=== PATIENT | female | born 1940 | race African-American/Black ===

== ENCOUNTER 2021-10-14 20:59 | Inpatient (IN) | payer MEDICARE, MEDICAID ==
[~2021-10-14] VITALS: Ht 165.1 cm; Wt 66.7 kg
[~2021-10-14 20:59] MED LIST: ALPR-341; AMLO-337 PO; ATEN-175; CHLO25TA2; CLONIDINE HCL; LEVO25TA7 PO; LISI20TA31 PO; METHADONE HCL 5 MG; METO25TA6; OXYC-100; TRAM50TA; [UNRECOGNIZED DRUG - OTHER]; [UNRECOGNIZED DRUG - REMARK]; amlodipine; famotidine; gabapentin; glipizide; temazepam
[2021-10-14 23:38] LABS: BASOPHILS % 0.1 % (0.0-2.0); EOSINOPHILS % 0.1 % (0.0-5.0); LYMPHOCYTES % 8.2 % (20.0-50.0); MEAN CORPUSCULAR HEMOGLOBIN 19.5 pg (28.0-32.0); MEAN CORPUSCULAR VOLUME 70.2 fL (81.0-99.0); MONOCYTES % 5.7 % (2.0-8.0); NEUTROPHILS % 85.9 % (40.0-76.0); PLATELET 318 x1000/uL (130-400); RED CELL DISTRIBUTION WIDTH 22.5 % (11.6-14.6)
[2021-10-14 23:41] LABS: CHLORIDE 105 mEq/L (98-107)
[2021-10-15] VITALS (7 sets, daily range): BP systolic 150–175; BP diastolic 72–87
[2021-10-15 00:10] LABS: HEMATOCRIT. 20.4 % (36.0-48.0); HEMOGLOBIN. 5.7 g/dL (12.0-16.0)
[2021-10-15 00:11] LABS: PLATELET ESTIMATE NORMAL
[2021-10-15] MEDS ORDERED: POTASSIUM CHLORIDE 20MEQ TABLET SR PO ONE (00:45)
[2021-10-15] MEDS ORDERED: MORPHINE SULFATE 4 MG/ML CPJ (NOT FOR IM USE) IV ONE (01:30)
[2021-10-15] MEDS ORDERED: ACETAMINOPHEN 650MG SUPP PR PRN ×2 (02:15)
[2021-10-15] MEDS ORDERED: IPRATROPIUM/ALBUTEROL 0.5-3(2.5)MG/3ML NEB HHN PRN (02:15)
[2021-10-15] MEDS ORDERED: MAGNESIUM/ALUMINUM HYDROXIDE/SIMETHICONE 30ML UDC PO PRN (02:15)
[2021-10-15] MEDS ORDERED: GUAIFENESIN 200MG/10ML SUGAR FREE UDC PO PRN (02:15)
[2021-10-15] MEDS ORDERED: DOCUSATE SODIUM 100MG CAPSULE PO PRN (02:15)
[2021-10-15] MEDS ORDERED: ONDANSETRON HCL 4MG/2ML INJ IV PRN (02:15)
[2021-10-15] MEDS ORDERED: ACETAMINOPHEN 325MG TABLET PO PRN ×2 (02:15)
[2021-10-15] MEDS ORDERED: DEXTROSE 50% WATER 50ML SYRINGE IV PRN (02:15)
[2021-10-15] MEDS ORDERED: NALOXONE HCL 0.4MG/ML VIAL IV PRN (03:30)
[2021-10-15] MEDS ORDERED: IOHEXOL-300 100 ML BOTTLE ONE (03:40)
[2021-10-15] MEDS: MORPHINE SULFATE 2 MG/ML CPJ (NOT FOR IM USE) IV PRN ×2 (05:01→12:43)
[2021-10-15] MEDS: INSULIN LISPRO 100 UNITS/ML SUBCUT SCH ×4 (07:00→21:00)
[2021-10-15] MEDS: BLOOD SUGAR DIAGNOSTIC STRIP TEST SCH ×5 (07:24→21:00)
[2021-10-15 08:09] LABS: BASOPHILS % 0.3 % (0.0-2.0); HEMATOCRIT. 22.7 % (36.0-48.0); MEAN CORPUSCULAR HEMOGLOBIN 22.2 pg (28.0-32.0); MEAN CORPUSCULAR VOLUME 71.8 fL (81.0-99.0); MEAN PLATELET VOLUME 7.9 fl (7.4-10.4); MONOCYTES % 10.5 % (2.0-8.0); NEUTROPHILS % 80.2 % (40.0-76.0); PLATELET 269 x1000/uL (130-400); RED BLOOD CELL COUNT 3.17 mill/uL (4.2-5.4)
[2021-10-15 08:18] LABS: CHLORIDE 110 mEq/L (98-107)
[2021-10-15 08:34] LABS: CREATINE KINASE 128 IU/L (26-192); HDL CHOLESTEROL 37 mg/dL (40-59); LDL CHOLESTEROL 15 mg/dL (5-100)
[2021-10-15] MEDS: AMLODIPINE 5MG TABLET PO SCH (10:45)
[2021-10-15] MEDS ORDERED: KETOROLAC 15MG/ML VIAL IV PRN (14:30)
[2021-10-15] MEDS: MORPHINE SULFATE 4 MG/ML CPJ (NOT FOR IM USE) IV PRN (17:06)
[2021-10-15] MEDS: PANTOPRAZOLE SODIUM 40 MG/VIAL IV SCH (18:23)
[2021-10-15] MEDS: CLONIDINE 0.1MG TABLET PO PRN (18:23)
[2021-10-15 20:58] LABS: TOTAL IRON BINDING CAPACITY 612 ug/dL (250-450)
[2021-10-15 21:10] LABS: FERRITIN 8 ng/mL (10-291)
[2021-10-15 21:26] LABS: VITAMIN B12 SERUM 1285 pg/mL (211-911)
[2021-10-15 21:30] LABS: FOLIC ACID (FOLATE) SERUM > 20.00 ng/mL (>5.38)
[2021-10-16 00:03] LABS: INR 1.1; PROTHROMBIN TIME 11.4 sec (9.6-11.0)
[2021-10-16 00:34] LABS: HEPATITIS B SURFACE ANTIGEN NEGATIVE
[2021-10-16] MEDS: MORPHINE SULFATE 4 MG/ML CPJ (NOT FOR IM USE) IV PRN ×3 (02:40→16:33)
[2021-10-16 04:00] VITALS: BP 140/72
[2021-10-16 06:35] LABS: INR 1.1; PROTHROMBIN TIME 11.6 sec (9.6-11.0)
[2021-10-16 07:00] LABS: CHLORIDE 112 mEq/L (98-107)
[2021-10-16] MEDS: BLOOD SUGAR DIAGNOSTIC STRIP TEST SCH ×4 (07:20→21:00)
[2021-10-16 07:45] LABS: BASOPHILS % 0.2 % (0.0-2.0); EOSINOPHILS % 0.4 % (0.0-5.0); HEMATOCRIT. 27.1 % (36.0-48.0); HEMOGLOBIN. 8.1 g/dL (12.0-16.0); LYMPHOCYTES % 13.1 % (20.0-50.0); MEAN CORPUSCULAR VOLUME 73.8 fL (81.0-99.0); MEAN PLATELET VOLUME 8.1 fl (7.4-10.4); MONOCYTES % 11.6 % (2.0-8.0); NEUTROPHILS % 74.7 % (40.0-76.0); PLATELET 277 x1000/uL (130-400); RED BLOOD CELL COUNT 3.68 mill/uL (4.2-5.4)
[2021-10-16] MEDS: INSULIN LISPRO 100 UNITS/ML SUBCUT SCH ×4 (07:50→21:00)
[2021-10-16 08:00] VITALS: BP 177/89
[2021-10-16] MEDS ORDERED: POTASSIUM CHLORIDE 20MEQ TABLET SR PO NR (09:15)
[2021-10-16] MEDS: AMLODIPINE 5MG TABLET PO SCH (10:10)
[2021-10-16] MEDS: PANTOPRAZOLE SODIUM 40 MG/VIAL IV SCH (10:11)
[2021-10-16] MEDS: HYDROCODONE/ACETAMINOPHEN 5/325MG TABLET PO PRN ×2 (10:12→20:28)
[2021-10-16] MEDS ORDERED: PROPOFOL 200MG/20ML VIAL IV ONE (12:18)
[2021-10-16] MEDS ORDERED: MIDAZOLAM HCL 2 MG/2 ML VIAL ONE (12:18)
[2021-10-16] MEDS ORDERED: LIDOCAINE HCL 1% 20ML VIAL (Pyxis) INJ ONE (12:19)
[2021-10-16] MEDS ORDERED: AMLO10TA80 PO (14:27)
[2021-10-16] MEDS ORDERED: GABA-290 PO (14:27)
[2021-10-16] MEDS ORDERED: ASPI-1497 PO (14:27)
[2021-10-16] MEDS ORDERED: CANA100T PO (14:27)
[2021-10-16] MEDS ORDERED: LEVO75TA7 PO (14:27)
[2021-10-16] MEDS ORDERED: ATOR40TA70 PO (14:27)
[2021-10-16] MEDS ORDERED: AMLODIPINE 5MG TABLET PO NR (14:30)
[2021-10-16 15:10] VITALS: BP 167/93
[2021-10-16 16:00] VITALS: BP 182/91
[2021-10-16] MEDS: CLONIDINE 0.1MG TABLET PO PRN (16:32)
[2021-10-16 19:52] VITALS: BP 144/77
[2021-10-17] VITALS: BP 136/72
[2021-10-17 03:35] VITALS: BP 140/70
[2021-10-17] MEDS: BLOOD SUGAR DIAGNOSTIC STRIP TEST SCH ×4 (06:28→21:00)
[2021-10-17] MEDS: LEVOTHYROXINE SODIUM 75MCG TABLET PO SCH (06:28)
[2021-10-17] MEDS: INSULIN LISPRO 100 UNITS/ML SUBCUT SCH ×4 (07:40→21:00)
[2021-10-17 08:00] VITALS: BP 168/96
[2021-10-17] MEDS: PANTOPRAZOLE SODIUM 40 MG/VIAL IV SCH (08:38)
[2021-10-17] MEDS: MORPHINE SULFATE 4 MG/ML CPJ (NOT FOR IM USE) IV PRN ×3 (08:38→22:43)
[2021-10-17] MEDS: AMLODIPINE 10MG TABLET PO SCH (08:38)
[2021-10-17 12:00] VITALS: BP 158/83
[2021-10-17] MEDS ORDERED: LACTULOSE 20G/30ML UDC PO NR (12:00)
[2021-10-17] MEDS: FERROUS SULFATE 325MG TABLET PO SCH ×2 (13:03→17:15)
[2021-10-17] MEDS: LOSARTAN POTASSIUM 25 MG TABLET PO SCH (13:03)
[2021-10-17] MEDS: HYDROCODONE/ACETAMINOPHEN 5/325MG TABLET PO PRN ×2 (13:03→17:15)
[2021-10-17 13:12] LABS: CHLORIDE 111 mEq/L (98-107)
[2021-10-17 13:15] LABS: BASOPHILS % 0.5 % (0.0-2.0); EOSINOPHILS % 0.5 % (0.0-5.0); HEMATOCRIT. 26.8 % (36.0-48.0); HEMOGLOBIN. 7.9 g/dL (12.0-16.0); LYMPHOCYTES % 16.9 % (20.0-50.0); MEAN CORPUSCULAR HEMOGLOBIN 22.1 pg (28.0-32.0); MEAN CORPUSCULAR VOLUME 74.8 fL (81.0-99.0); MEAN PLATELET VOLUME 8.3 fl (7.4-10.4); MONOCYTES % 10.9 % (2.0-8.0); NEUTROPHILS % 71.2 % (40.0-76.0); PLATELET 262 x1000/uL (130-400); RED BLOOD CELL COUNT 3.58 mill/uL (4.2-5.4); RED CELL DISTRIBUTION WIDTH 23.4 % (11.6-14.6)
[2021-10-17 16:00] VITALS: BP 140/81
[2021-10-17 16:26] LABS: CLARITY URINE CLEAR (CLEAR); COLOR URINE YELLOW (YELLOW); KETONES URINE NEGATIVE (NEGATIVE); LEUKOCYTE ESTERASE URINE NEGATIVE (NEGATIVE); NITRITE URINE NEGATIVE (NEGATIVE); OCCULT BLOOD URINE NEGATIVE (NEGATIVE); PROTEIN URINE 1+ (NEGATIVE); SPECIFIC GRAVITY URINE 1.017 (1.005-1.030)
[2021-10-17] MEDS ORDERED: POTASSIUM CHLORIDE 20MEQ/PACKET PO NR (16:30)
[2021-10-17 22:30] VITALS: BP 144/86
[2021-10-18] VITALS (7 sets, daily range): BP systolic 130–170; BP diastolic 77–104
[2021-10-18] MEDS: MORPHINE SULFATE 4 MG/ML CPJ (NOT FOR IM USE) IV PRN ×5 (03:08→23:07)
[2021-10-18 06:13] LABS: CHLORIDE 112 mEq/L (98-107)
[2021-10-18 06:28] LABS: BASOPHILS % 0.2 % (0.0-2.0); EOSINOPHILS % 0.5 % (0.0-5.0); HEMATOCRIT. 28.3 % (36.0-48.0); HEMOGLOBIN. 8.5 g/dL (12.0-16.0); LYMPHOCYTES % 19.3 % (20.0-50.0); MEAN CORPUSCULAR HEMOGLOBIN 22.2 pg (28.0-32.0); MEAN CORPUSCULAR VOLUME 74.1 fL (81.0-99.0); MEAN PLATELET VOLUME 8.4 fl (7.4-10.4); PLATELET 251 x1000/uL (130-400); RED BLOOD CELL COUNT 3.82 mill/uL (4.2-5.4); RED CELL DISTRIBUTION WIDTH 23.5 % (11.6-14.6)
[2021-10-18] MEDS: LEVOTHYROXINE SODIUM 75MCG TABLET PO SCH (06:52)
[2021-10-18] MEDS: BLOOD SUGAR DIAGNOSTIC STRIP TEST SCH ×4 (07:12→20:28)
[2021-10-18] MEDS: INSULIN LISPRO 100 UNITS/ML SUBCUT SCH ×4 (07:28→20:28)
[2021-10-18] MEDS: AMLODIPINE 10MG TABLET PO SCH (08:59)
[2021-10-18] MEDS: LOSARTAN POTASSIUM 25 MG TABLET PO SCH (08:59)
[2021-10-18] MEDS: HYDROCODONE/ACETAMINOPHEN 5/325MG TABLET PO PRN (08:59)
[2021-10-18] MEDS: PANTOPRAZOLE SODIUM 40 MG/VIAL IV SCH (08:59)
[2021-10-18] MEDS: FERROUS SULFATE 325MG TABLET PO SCH ×3 (08:59→17:13)
[2021-10-18] MEDS ORDERED: LOSARTAN POTASSIUM 25 MG TABLET PO NR (10:30)
[2021-10-18] MEDS ORDERED: MAGNESIUM OXIDE 400MG TABLET PO NR (10:45)
[2021-10-18] MEDS ORDERED: POTASSIUM CHLORIDE 10MEQ TABLET SR PO NR (10:45)
[2021-10-18] MEDS ORDERED: POTASSIUM CHLORIDE 20MEQ/PACKET PO NR (11:00)
[2021-10-18] MEDS ORDERED: LACTULOSE 20G/30ML UDC PO NR (16:59)
[2021-10-18] MEDS ORDERED: LOSARTAN POTASSIUM 25 MG TABLET PO SCH (17:00)
[2021-10-18] MEDS ORDERED: LOSARTAN POTASSIUM 50 MG TABLET PO SCH (17:00)
[2021-10-18] MEDS: CLONIDINE 0.1MG TABLET PO PRN (21:13)
[2021-10-19 16:52] LABS: PLATELET ESTIMATE NORMAL
== END 2021-10-18 23:15 | DRG 551 ==
LOC: ER 20:59 → MICUSO 10-15 00:35 → 6WST 10-15 16:48
PROVIDERS: ADMIT Family Medicine Adult Medicine; ATTEND Family Medicine Adult Medicine
PROC: 30233N1 Transfusion of Nonautologous Red Blood Cells into Peripheral Vein, Percutaneous Approach (ICD-10-PCS; 2021-10-15)
PROC: 0DB78ZX Excision of Stomach, Pylorus, Via Natural or Artificial Opening Endoscopic, Diagnostic (ICD-10-PCS; principal; 2021-10-16)
DX: S32.028A Other fracture of second lumbar vertebra, initial encounter for closed fracture (principal); G93.41 Metabolic encephalopathy; K29.01 Acute gastritis with bleeding; S22.42XA Multiple fractures of ribs, left side, initial encounter for closed fracture; G82.20 Paraplegia, unspecified; N17.9 Acute kidney failure, unspecified; K92.1 Melena; S32.038A Other fracture of third lumbar vertebra, initial encounter for closed fracture; R33.9 Retention of urine, unspecified; Z20.822 Contact with and (suspected) exposure to COVID-19; E87.6 Hypokalemia; K86.89 Other specified diseases of pancreas; I10 Essential (primary) hypertension; E03.9 Hypothyroidism, unspecified; R74.01 Elevation of levels of liver transaminase levels; E11.40 Type 2 diabetes mellitus with diabetic neuropathy, unspecified; D50.9 Iron deficiency anemia, unspecified; K42.9 Umbilical hernia without obstruction or gangrene; E80.6 Other disorders of bilirubin metabolism; G89.4 Chronic pain syndrome; B19.20 Unspecified viral hepatitis C without hepatic coma; Z74.01 Bed confinement status; Z79.84 Long term (current) use of oral hypoglycemic drugs; Z90.49 Acquired absence of other specified parts of digestive tract; Z79.899 Other long term (current) drug therapy; Z90.710 Acquired absence of both cervix and uterus; Z86.73 Personal history of transient ischemic attack (TIA), and cerebral infarction without residual deficits; W01.0XXA Fall on same level from slipping, tripping and stumbling without subsequent striking against object, initial encounter; Y92.002 Bathroom of unspecified non-institutional (private) residence as the place of occurrence of the external cause; Y93.89 Activity, other specified; Y99.8 Other external cause status; S32.018A Other fracture of first lumbar vertebra, initial encounter for closed fracture; G90.9 Disorder of the autonomic nervous system, unspecified; R53.1 Weakness; N83.8 Other noninflammatory disorders of ovary, fallopian tube and broad ligament
CPT/HCPCS: 36415; 70551; 71045; 71101; 72141; 72146; 72148; 73080; 74018; 74177; 76856; 80048; 80053; 80061; 80076; 81003; 82140; 82248; 82550; 82607; 82728; 82746; 82962; 83036; 83540; 83550; 83735; 84443; 84484; 85025; 85044; 86705; 86709; 86803; 86850; 86900; 86920; 87340; 87426; 88305; 88312; 88313; 93306; 93970; 97161; 97162; 99291; C9113; J2250; J2270; J2405; J2704; J3490; P9016; Q9967

== ENCOUNTER 2021-10-18 23:15 | Inpatient (IN) | payer MEDICARE, MEDICAID ==
[~2021-10-18] VITALS: Ht 165.1 cm; Wt 66.7 kg
[2021-10-18 23:15] VITALS: BP 144/86
[~2021-10-18 23:15] MED LIST changes: -ALPR-341; -AMLO-337 PO; +AMLO10TA80 PO; +ASPI-1497 PO; -ATEN-175; +ATOR40TA70 PO; +CANA100T PO; -CHLO25TA2; -CLONIDINE HCL; +GABA-290 PO; -LEVO25TA7 PO; +LEVO75TA7 PO; -METHADONE HCL 5 MG; -METO25TA6; -OXYC-100; -TRAM50TA; -[UNRECOGNIZED DRUG - OTHER]; -[UNRECOGNIZED DRUG - REMARK]; -amlodipine; -famotidine; -gabapentin; -glipizide; -temazepam
[2021-10-19] MEDS ORDERED: MAGNESIUM/ALUMINUM HYDROXIDE/SIMETHICONE 30ML UDC PO PRN (01:15)
[2021-10-19] MEDS ORDERED: ACETAMINOPHEN 650MG/20.3ML UDC PO PRN (01:15)
[2021-10-19] MEDS ORDERED: ONDANSETRON HCL 4MG/2ML INJ IV PRN (01:15)
[2021-10-19] MEDS ORDERED: IPRATROPIUM/ALBUTEROL 0.5-3(2.5)MG/3ML NEB HHN PRN (01:15)
[2021-10-19] MEDS ORDERED: GUAIFENESIN 200MG/10ML SUGAR FREE UDC PO PRN (01:15)
[2021-10-19] MEDS ORDERED: CLONIDINE 0.1MG TABLET PO PRN (01:15)
[2021-10-19] MEDS ORDERED: NALOXONE HCL 0.4 MG/ML 1ML VIAL IV PRN (01:15)
[2021-10-19] MEDS ORDERED: MORPHINE SULFATE 4 MG/ML CPJ (NOT FOR IM USE) IV PRN (01:15)
[2021-10-19] MEDS ORDERED: DOCUSATE SODIUM 100MG CAPSULE PO PRN (01:15)
[2021-10-19] MEDS ORDERED: NALOXONE HCL 0.4MG/ML VIAL IV PRN (01:45)
[2021-10-19] MEDS ORDERED: MORPHINE SULFATE 2 MG/ML CPJ (NOT FOR IM USE) IV PRN (01:45)
[2021-10-19] MEDS ORDERED: ACETAMINOPHEN 650MG SUPP PR PRN ×2 (01:45)
[2021-10-19] MEDS ORDERED: DEXTROSE 50% WATER 50ML SYRINGE IV PRN ×3 (02:00→02:30)
[2021-10-19 03:35] LABS: CLARITY URINE CLEAR (CLEAR); COLOR URINE YELLOW (YELLOW); KETONES URINE TRACE (NEGATIVE); LEUKOCYTE ESTERASE URINE 2+ (NEGATIVE); NITRITE URINE NEGATIVE (NEGATIVE); OCCULT BLOOD URINE 2+ (NEGATIVE); PH URINE 6.5 (4.5-8.0); PROTEIN URINE 1+ (NEGATIVE); SPECIFIC GRAVITY URINE 1.018 (1.005-1.030)
[2021-10-19 04:00] VITALS: BP 128/70
[2021-10-19] MEDS ORDERED: BLOOD SUGAR DIAGNOSTIC STRIP TEST SCH ×2 (06:30)
[2021-10-19] MEDS: BLOOD SUGAR DIAGNOSTIC STRIP TEST SCH ×4 (06:49→21:52)
[2021-10-19] MEDS: LEVOTHYROXINE SODIUM 75MCG TABLET PO SCH (06:51)
[2021-10-19] MEDS: INSULIN LISPRO 100 UNITS/ML SUBCUT SCH ×4 (06:53→21:00)
[2021-10-19 08:00] VITALS: BP 157/86
[2021-10-19] MEDS: FERROUS SULFATE 325MG TABLET PO SCH ×3 (08:55→18:08)
[2021-10-19] MEDS: HYDROCODONE/ACETAMINOPHEN 5/325MG TABLET PO PRN ×3 (08:56→21:59)
[2021-10-19] MEDS: LOSARTAN POTASSIUM 50 MG TABLET PO SCH ×2 (08:56→18:08)
[2021-10-19] MEDS: AMLODIPINE 10MG TABLET PO SCH (08:57)
[2021-10-19] MEDS ORDERED: PANTOPRAZOLE SODIUM 40 MG/VIAL IV SCH (09:00)
[2021-10-19] MEDS ORDERED: LACTULOSE 20G/30ML UDC PO PRN ×2 (14:15→14:45)
[2021-10-19] MEDS ORDERED: LEVOFLOXACIN 500MG TABLET PO NR (14:30)
[2021-10-19] MEDS ORDERED: NA PHOS,M-B/NA PHOS,DI-BA ENEMA 118ML PR PRN (14:45)
[2021-10-19] MEDS: DOCUSATE SODIUM 100MG CAPSULE PO SCH ×2 (18:08→21:57)
[2021-10-19] MEDS: ACETAMINOPHEN 650MG/20.3ML UDC PO PRN (18:09)
[2021-10-19 20:00] VITALS: BP 156/89
[2021-10-20] MEDS: BLOOD SUGAR DIAGNOSTIC STRIP TEST SCH ×4 (06:12→21:00)
[2021-10-20] MEDS: LEVOTHYROXINE SODIUM 75MCG TABLET PO SCH (06:12)
[2021-10-20] MEDS: PANTOPRAZOLE 40MG DR TABLET PO SCH (06:12)
[2021-10-20] MEDS: INSULIN LISPRO 100 UNITS/ML SUBCUT SCH ×4 (06:13→21:00)
[2021-10-20] MEDS: ACETAMINOPHEN 650MG/20.3ML UDC PO PRN ×2 (06:30→23:29)
[2021-10-20 06:44] LABS: BASOPHILS % 0.2 % (0.0-2.0); EOSINOPHILS % 0.3 % (0.0-5.0); HEMATOCRIT. 30.5 % (36.0-48.0); MEAN CORPUSCULAR HEMOGLOBIN 22.8 pg (28.0-32.0); MEAN PLATELET VOLUME 7.9 fl (7.4-10.4); MONOCYTES % 9.3 % (2.0-8.0); NEUTROPHILS % 78.2 % (40.0-76.0); PLATELET 241 x1000/uL (130-400); RED BLOOD CELL COUNT 3.96 mill/uL (4.2-5.4); RED CELL DISTRIBUTION WIDTH 24.1 % (11.6-14.6)
[2021-10-20 07:22] LABS: CHLORIDE 114 mEq/L (98-107)
[2021-10-20 08:00] VITALS: BP 149/65
[2021-10-20] MEDS: AMLODIPINE 10MG TABLET PO SCH (09:12)
[2021-10-20] MEDS: FERROUS SULFATE 325MG TABLET PO SCH ×3 (09:12→17:08)
[2021-10-20] MEDS: DOCUSATE SODIUM 100MG CAPSULE PO SCH ×2 (09:12→17:09)
[2021-10-20] MEDS: LOSARTAN POTASSIUM 50 MG TABLET PO SCH ×2 (09:12→17:11)
[2021-10-20] MEDS: HYDROCODONE/ACETAMINOPHEN 5/325MG TABLET PO PRN ×2 (09:24→13:33)
[2021-10-20] MEDS: LEVOFLOXACIN 250MG TABLET PO SCH (11:27)
[2021-10-20 18:03] LABS: PLATELET ESTIMATE NORMAL
[2021-10-20 20:25] VITALS: BP 131/58
[2021-10-21] MEDS: HYDROCODONE/ACETAMINOPHEN 5/325MG TABLET PO PRN ×4 (04:47→18:03)
[2021-10-21] MEDS: BLOOD SUGAR DIAGNOSTIC STRIP TEST SCH ×4 (06:21→21:00)
[2021-10-21] MEDS: PANTOPRAZOLE 40MG DR TABLET PO SCH (06:22)
[2021-10-21] MEDS: LEVOTHYROXINE SODIUM 75MCG TABLET PO SCH (06:22)
[2021-10-21 08:00] VITALS: BP 148/77
[2021-10-21] MEDS: INSULIN LISPRO 100 UNITS/ML SUBCUT SCH ×4 (09:00→21:00)
[2021-10-21] MEDS: AMLODIPINE 10MG TABLET PO SCH (09:16)
[2021-10-21] MEDS: LOSARTAN POTASSIUM 50 MG TABLET PO SCH ×2 (09:16→18:02)
[2021-10-21] MEDS: DOCUSATE SODIUM 100MG CAPSULE PO SCH ×2 (09:16→18:02)
[2021-10-21] MEDS: FERROUS SULFATE 325MG TABLET PO SCH ×3 (09:16→18:02)
[2021-10-21] MEDS: LEVOFLOXACIN 250MG TABLET PO SCH (11:31)
[2021-10-21] MEDS ORDERED: AMLO10TA80 PO (16:58)
[2021-10-21] MEDS ORDERED: LOSA50TA3 PO (16:58)
[2021-10-21 20:03] VITALS: BP 147/81
[2021-10-22] MEDS: HYDROCODONE/ACETAMINOPHEN 5/325MG TABLET PO PRN ×3 (04:06→18:06)
[2021-10-22] MEDS: BLOOD SUGAR DIAGNOSTIC STRIP TEST SCH ×3 (06:42→17:00)
[2021-10-22] MEDS: LEVOTHYROXINE SODIUM 75MCG TABLET PO SCH (06:42)
[2021-10-22] MEDS: INSULIN LISPRO 100 UNITS/ML SUBCUT SCH ×3 (07:24→17:00)
[2021-10-22 08:00] VITALS: BP 162/88
[2021-10-22] MEDS ORDERED: FAMOTIDINE 20MG TABLET PO SCH (09:00)
[2021-10-22] MEDS: AMLODIPINE 10MG TABLET PO SCH (09:49)
[2021-10-22] MEDS: FERROUS SULFATE 325MG TABLET PO SCH ×3 (09:49→17:00)
[2021-10-22] MEDS: DOCUSATE SODIUM 100MG CAPSULE PO SCH ×2 (09:49→17:00)
[2021-10-22] MEDS: LOSARTAN POTASSIUM 50 MG TABLET PO SCH ×2 (09:49→18:07)
[2021-10-22] MEDS: LEVOFLOXACIN 250MG TABLET PO SCH (09:50)
[2021-10-22] MEDS ORDERED: HYDR-4001 MT (12:03)
[2021-10-22] MEDS ORDERED: TRAM50TA94 MT (12:03)
[2021-10-22 18:06] VITALS: BP 149/86
[2021-10-22] MEDS: ACETAMINOPHEN 650MG/20.3ML UDC PO PRN (19:48)
== END 2021-10-22 20:08 | disposition home health service (06) | DRG 184 ==
PROVIDERS: ADMIT Psychiatry & Neurology Neurology; ATTEND Family Medicine Adult Medicine
DX: S22.42XA Multiple fractures of ribs, left side, initial encounter for closed fracture (principal); G93.40 Encephalopathy, unspecified; N39.0 Urinary tract infection, site not specified; M48.061 Spinal stenosis, lumbar region without neurogenic claudication; M71.30 Other bursal cyst, unspecified site; B19.20 Unspecified viral hepatitis C without hepatic coma; D64.9 Anemia, unspecified; E03.9 Hypothyroidism, unspecified; E11.42 Type 2 diabetes mellitus with diabetic polyneuropathy; F01.50 Vascular dementia, unspecified severity, without behavioral disturbance, psychotic disturbance, mood disturbance, and anxiety; F39 Unspecified mood [affective] disorder; G89.29 Other chronic pain; I10 Essential (primary) hypertension; M54.17 Radiculopathy, lumbosacral region; K29.70 Gastritis, unspecified, without bleeding; Z20.822 Contact with and (suspected) exposure to COVID-19; K59.00 Constipation, unspecified; W18.39XA Other fall on same level, initial encounter; Y93.89 Activity, other specified; Y92.89 Other specified places as the place of occurrence of the external cause; Y99.8 Other external cause status; Z86.73 Personal history of transient ischemic attack (TIA), and cerebral infarction without residual deficits; R26.9 Unspecified abnormalities of gait and mobility
CPT/HCPCS: 36415; 80048; 81003; 82962; 83036; 83735; 85025; 87077; 87186; 87426; 92523; 97110; 97162; 97166; 97530; 97535; C9113

== ENCOUNTER 2022-07-23 14:24 | Inpatient (IN) | payer MEDICARE, MEDICAID ==
[~2022-07-23] VITALS: Ht 165.1 cm; Wt 56.2 kg
[~2022-07-23 14:24] MED LIST changes: +HYDR-4001 MT; -LISI20TA31 PO; +LOSA50TA3 PO; +TRAM50TA94 MT
[2022-07-23 15:36] LABS: HEMATOCRIT. 29.2 % (36.0-48.0); HEMOGLOBIN. 8.8 g/dL (12.0-16.0); MEAN CORPUSCULAR HEMOGLOBIN 26.1 pg (28.0-32.0); MEAN CORPUSCULAR VOLUME 86.2 fL (81.0-99.0); MEAN PLATELET VOLUME 8.1 fl (7.4-10.4); PLATELET 233 x1000/uL (130-400); RED BLOOD CELL COUNT 3.38 mill/uL (4.2-5.4); RED CELL DISTRIBUTION WIDTH 24.8 % (11.6-14.6)
[2022-07-23 15:39] LABS: PROTHROMBIN TIME 11.2 sec (9.6-11.0)
[2022-07-23 15:47] LABS: CLARITY URINE CLEAR (CLEAR); COLOR URINE YELLOW (YELLOW); KETONES URINE NEGATIVE (NEGATIVE); LEUKOCYTE ESTERASE URINE NEGATIVE (NEGATIVE); NITRITE URINE NEGATIVE (NEGATIVE); OCCULT BLOOD URINE NEGATIVE (NEGATIVE); PH URINE 7.5 (4.5-8.0); PROTEIN URINE 1+ (NEGATIVE); SPECIFIC GRAVITY URINE 1.015 (1.005-1.030)
[2022-07-23 15:47] LABS: CHLORIDE 113 mEq/L (98-107)
[2022-07-23] MEDS ORDERED: IOHEXOL-350 100 ML BOTTLE ONE (21:22)
[2022-07-23 21:40] LABS: PLATELET ESTIMATE NORMAL
[2022-07-24 02:32] VITALS: BP 137/86
[2022-07-24] MEDS ORDERED: ACETAMINOPHEN 650MG/20.3ML UDC PO PRN (03:15)
[2022-07-24] MEDS ORDERED: CLONIDINE 0.1MG TABLET PO PRN (03:15)
[2022-07-24] MEDS ORDERED: DEXTROSE 50% WATER 50ML SYRINGE IV PRN (03:15)
[2022-07-24] MEDS ORDERED: HYDROCODONE/ACETAMINOPHEN 5/325MG TABLET PO PRN (03:15)
[2022-07-24] MEDS ORDERED: NALOXONE HCL 0.4MG/ML VIAL IV PRN (05:30)
[2022-07-24] MEDS: BLOOD SUGAR DIAGNOSTIC STRIP TEST SCH ×3 (07:03→17:11)
[2022-07-24] MEDS: INSULIN LISPRO 100 UNITS/ML SUBCUT SCH ×3 (07:50→17:11)
[2022-07-24 08:00] VITALS: BP 123/73
[2022-07-24] MEDS ORDERED: ENOXAPARIN 40MG/0.4ML SYR SUBCUT SCH (09:00)
[2022-07-24 12:00] VITALS: BP 123/73
[2022-07-24 12:55] LABS: HEMATOCRIT 27.6 % (36.0-48.0); HEMOGLOBIN 8.7 g/dL (12.0-16.0); MEAN CORPUSCULAR HEMOGLOBIN 26.2 pg (28.0-32.0); MEAN CORPUSCULAR VOLUME 83.5 fL (81.0-99.0); PLATELET 247 x1000/uL (130-400); RED CELL DISTRIBUTION WIDTH 25.1 % (11.6-14.6)
[2022-07-24 14:14] LABS: CHLORIDE 110 mEq/L (98-107)
[2022-07-24] MEDS ORDERED: PANTOPRAZOLE 40MG DR TABLET PO SCH (14:15)
[2022-07-24] MEDS ORDERED: CIPR-264 MT (14:38)
[2022-07-24] MEDS ORDERED: POTASSIUM CHLORIDE 20MEQ TABLET SR PO NR (15:00)
[2022-07-24 16:00] VITALS: BP 110/71
[2022-07-24] MEDS ORDERED: CEFTRIAXONE 1,000 MG in DEXTROSE 5% WATER 50 ML IV NR (16:00)
[2022-07-24 19:01] VITALS: BP 142/64
== END 2022-07-24 19:30 | disposition home or self-care (01) | DRG 690 ==
LOC: ER 14:43 → EDBEDREQSVC 14:51 → MICUSO 20:34 → EDBEDREQ 20:45 → 6EST 07-24 05:21
PROVIDERS: ADMIT Internal Medicine; ATTEND Internal Medicine
DX: N39.0 Urinary tract infection, site not specified (principal); E44.0 Moderate protein-calorie malnutrition; E11.22 Type 2 diabetes mellitus with diabetic chronic kidney disease; E78.5 Hyperlipidemia, unspecified; E03.9 Hypothyroidism, unspecified; F03.90 Unspecified dementia, unspecified severity, without behavioral disturbance, psychotic disturbance, mood disturbance, and anxiety; I65.29 Occlusion and stenosis of unspecified carotid artery; N18.9 Chronic kidney disease, unspecified; R47.81 Slurred speech; I12.9 Hypertensive chronic kidney disease with stage 1 through stage 4 chronic kidney disease, or unspecified chronic kidney disease; Z86.73 Personal history of transient ischemic attack (TIA), and cerebral infarction without residual deficits; Z79.4 Long term (current) use of insulin
CPT/HCPCS: 36415; 70496; 70498; 71045; 80048; 80053; 81003; 82962; 83036; 84484; 85025; 85027; 99285; J0696; J1650; J1815; J7060; Q9967

== ENCOUNTER 2025-02-21 16:37 | Inpatient (IN) | payer MEDICARE, MEDICAID ==
[~2025-02-21] VITALS: Ht 157.5 cm; Wt 63.5 kg
[~2025-02-21 16:37] MED LIST changes: -ASPI-1497 PO; +LOSA-413 PO; -LOSA50TA3 PO; +OXYC-662 GT
[2025-02-21 16:40] VITALS: O2SAT 100
[2025-02-21 18:11] LABS: BASOPHILS % 0.3 % (0.0-2.0); EOSINOPHILS % 0.2 % (0.0-5.0); HEMATOCRIT. 29.2 % (36.0-48.0); HEMOGLOBIN. 8.7 g/dL (12.0-16.0); LYMPHOCYTES % 22.1 % (20.0-50.0); MEAN PLATELET VOLUME 7.2 fl (7.4-10.4); MONOCYTES % 11.7 % (2.0-8.0); NEUTROPHILS % 65.7 % (40.0-76.0); PLATELET 270 x1000/uL (130-400); RED BLOOD CELL COUNT 3.29 mill/uL (4.2-5.4); RED CELL DISTRIBUTION WIDTH 14.9 % (11.6-14.6)
[2025-02-21 18:25] LABS: CREATININE 0.9 mg/dL (0.6-1.0); UREA NITROGEN BLOOD 15 mg/dL (9-23)
[2025-02-21 18:26] LABS: ETHANOL BLOOD < 10 mg/dL (<10)
[2025-02-21 18:27] LABS: ASPARTATE AMINOTRANSFERASE 24 IU/L (<34); BILIRUBIN DIRECT 0.1 mg/dL (<=3.0)
[2025-02-21 18:28] LABS: BILIRUBIN TOTAL 0.3 mg/dL (0.1-1.0); PROTEIN TOTAL 9.1 g/dL (6.0-8.3)
[2025-02-21 18:37] LABS: INR 1.1
[2025-02-21] MEDS: CEFTRIAXONE 1GM/50ML 50 ML IV ONE (18:46)
[2025-02-21] MEDS: SODIUM CHLORIDE 0.9% (SEPSIS BOLUS) IV ONE (18:58)
[2025-02-21 19:05] LABS: CLARITY URINE CLOUDY (CLEAR); GLUCOSE URINE 3+ (NEGATIVE); KETONES URINE NEGATIVE (NEGATIVE); LEUKOCYTE ESTERASE URINE 2+ (NEGATIVE); NITRITE URINE NEGATIVE (NEGATIVE); OCCULT BLOOD URINE TRACE (NEGATIVE); PH URINE 5.5 (4.5-8.0); PROTEIN URINE 2+ (NEGATIVE); SPECIFIC GRAVITY URINE 1.041 (1.005-1.030); UROBILINOGEN URINE 1.0 E.U./dL (0.2-1.0)
[2025-02-21 19:21] LABS: *AMPHETAMINES SCREEN URINE NEGATIVE (NEGATIVE); *BARBITURATES SCREEN URINE NEGATIVE (NEGATIVE); *BENZODIAZEPINES SCREEN URINE NEGATIVE (NEGATIVE); *COCAINE SCREEN URINE NEGATIVE (NEGATIVE); CANNABINOID URINE SCREEN NEGATIVE (NEGATIVE); ECSTASY MDMA SCREEN URINE NEGATIVE (NEGATIVE); METHADONE URINE SCREEN NEGATIVE (NEGATIVE); OPIATES URINE SCREEN PRESUMPTIVE POSITIVE (NEGATIVE); PHENCYCLIDINE URINE SCREEN NEGATIVE (NEGATIVE)
[2025-02-21 20:07] LABS: COLOR URINE STRAW (YELLOW)
[2025-02-21 20:09] LABS: RBC URINE NONE SEEN /hpf (0-2); SQUAMOUS EPITHELIAL CELL URINE 1+ /lpf (RARE/1+); WBC URINE 50-100 /hpf (0-2)
[2025-02-21 20:10] LABS: BACTERIA URINE 1+; MUCUS URINE 1+ /lpf (< = 2+)
[2025-02-21] MEDS ORDERED: ACETAMINOPHEN 325MG TABLET PO PRN (20:30)
[2025-02-21] MEDS ORDERED: ONDANSETRON HCL 4MG/2ML INJ IV PRN (20:30)
[2025-02-21] MEDS ORDERED: NALOXONE HCL 0.4MG/ML VIAL IV PRN (20:45)
[2025-02-21] MEDS: ATORVASTATIN CALCIUM 40MG TABLET PO SCH (21:14)
[2025-02-21] MEDS: LOSARTAN 50 MG TABLET PO SCH (21:14)
[2025-02-21 22:00] VITALS: BP_SYST 185; BP_DIAS 95; BP_DIAS 98; PULSE 82; PULSE 85; RESP 20; TEMP 36.4; TEMP 36.418; O2SAT 97
[2025-02-21] MEDS: PIPERACILLIN/TAZO 3.375G/50ML 50 ML IV SCH (22:24)
[2025-02-21] MEDS: CLONIDINE 0.1MG TABLET PO PRN (22:29)
[2025-02-21] MEDS: HYDROCODONE/ACETAMINOPHEN 5/325MG TABLET PO PRN (22:30)
[2025-02-21] MEDS ORDERED: IOHEXOL-300 100 ML BOTTLE ONE (23:32)
[2025-02-21] MEDS ORDERED: IOHEXOL-350 100 ML BOTTLE ONE (23:32)
[2025-02-22] VITALS: BP 155/86; PULSE 89; RESP 20; TEMP 36.4; O2SAT 97
[2025-02-22 04:00] VITALS: BP 171/93; PULSE 61; RESP 18; TEMP 35.6; TEMP 35.9; O2SAT 100
[2025-02-22 08:00] VITALS: BP 147/85; PULSE 69; RESP 15; TEMP 36.1; O2SAT 95
[2025-02-22] MEDS: ENOXAPARIN 30MG/0.3ML SYR SUBCUT SCH (08:31)
[2025-02-22] MEDS: LEVOTHYROXINE SODIUM 75MCG TABLET PO SCH (08:31)
[2025-02-22] MEDS: AMLODIPINE 10MG TABLET PO SCH (08:32)
[2025-02-22] MEDS: CLOPIDOGREL 75MG TABLET PO SCH (09:56)
[2025-02-22] MEDS: ASPIRIN 81MG EC TABLET PO SCH (09:56)
[2025-02-22] MEDS: CEFTRIAXONE 1GM/50ML 50 ML IV SCH (11:27)
[2025-02-22 12:00] VITALS: BP 115/65; PULSE 63; RESP 18; TEMP 36.8; O2SAT 99
[2025-02-22 16:00] VITALS: BP 133/85; PULSE 68; RESP 18; TEMP 36.3; O2SAT 96
[2025-02-22] MEDS: ACETAMINOPHEN 325MG TABLET PO PRN (16:05)
[2025-02-22 20:00] VITALS: BP 131/77; PULSE 75; RESP 20; TEMP 36.5; O2SAT 98
[2025-02-22] MEDS: ATORVASTATIN CALCIUM 40MG TABLET PO SCH (21:45)
[2025-02-23] VITALS: BP 161/89; PULSE 70; RESP 18; TEMP 37.2; O2SAT 98
[2025-02-23] MEDS ORDERED: MELATONIN 3MG TABLET PO SCH (01:00)
[2025-02-23] MEDS: MELATONIN 3MG TABLET PO PRN (01:03)
[2025-02-23 04:00] VITALS: BP 135/78; PULSE 69; RESP 19; TEMP 36.6; O2SAT 99
[2025-02-23 06:17] LABS: TRIGLYCERIDE 67.0 mg/dL (0-150)
[2025-02-23 06:18] LABS: LDL CHOLESTEROL 33.0 mg/dL (5-100)
[2025-02-23 08:00] VITALS: BP 123/72; PULSE 62; RESP 18; TEMP 36.6; O2SAT 97
[2025-02-23 12:00] VITALS: BP 120/64; PULSE 64; RESP 18; TEMP 36.3; O2SAT 98
[2025-02-23 16:00] VITALS: BP 134/71; PULSE 80; RESP 18; TEMP 36.2; O2SAT 97
[2025-02-23 20:00] VITALS: BP 130/69; PULSE 73; RESP 19; TEMP 36.4; O2SAT 97
[2025-02-24] VITALS: BP 162/82; PULSE 81; RESP 18; TEMP 36.7; O2SAT 98
[2025-02-24 04:00] VITALS: BP 130/79; PULSE 75; RESP 18; TEMP 36.9; O2SAT 96
[2025-02-24] MEDS ORDERED: OXYCODONE HCL 5MG TABLET GT SCH (05:45)
[2025-02-24] MEDS: OXYCODONE HCL 5MG TABLET PO SCH (06:04)
[2025-02-24 08:00] VITALS: BP 146/86; PULSE 76; RESP 16; TEMP 36.5; O2SAT 98
[2025-02-24 12:00] VITALS: BP 136/66; PULSE 78; RESP 16; TEMP 36.3; O2SAT 99
[2025-02-24 16:00] VITALS: BP 124/82; PULSE 74; RESP 17; TEMP 36.6; O2SAT 96
[2025-02-24 20:00] VITALS: BP 157/74; PULSE 77; RESP 16; TEMP 36.7; O2SAT 100
[2025-02-25] VITALS: BP 158/78; PULSE 78; RESP 16; TEMP 36.9; O2SAT 98
[2025-02-25 04:00] VITALS: BP 199/103; PULSE 85; RESP 16; TEMP 36.5; O2SAT 98
[2025-02-25 08:00] VITALS: BP 149/81; PULSE 65; RESP 16; TEMP 36.8; O2SAT 99
[2025-02-25 12:00] VITALS: BP 124/66; PULSE 73; RESP 17; RESP 18; TEMP 36.3; TEMP 36.4; O2SAT 98; O2SAT 99
[2025-02-25 16:00] VITALS: BP_SYST 136; BP_SYST 150; BP_DIAS 68; BP_DIAS 74; PULSE 75; PULSE 76; RESP 17; RESP 18; TEMP 36.4; TEMP 36.8; O2SAT 99
[2025-02-25 20:00] VITALS: BP 130/77; PULSE 78; RESP 18; TEMP 36.5; O2SAT 98
[2025-02-26] VITALS: BP 142/70; PULSE 85; RESP 19; TEMP 36.3; O2SAT 99
[2025-02-26 04:00] VITALS: BP 165/89; PULSE 79; RESP 19; TEMP 36.9; O2SAT 99
[2025-02-26 08:00] VITALS: BP 135/73; PULSE 63; RESP 16; TEMP 35.8; O2SAT 100
[2025-02-26 12:00] VITALS: BP 135/71; PULSE 75; RESP 16; TEMP 35.9; O2SAT 97
[2025-02-26] MEDS: LACTULOSE 20G/30ML UDC PO PRN (13:35)
[2025-02-26 16:00] VITALS: BP 158/81; PULSE 78; RESP 17; TEMP 35.8; O2SAT 97
[2025-02-26 16:45] VITALS: BP 158/81; PULSE 98; RESP 17; TEMP 96.4
[2025-04-03] MEDS ORDERED: SOFO1TAB MT (18:08)
[2025-04-04] MEDS ORDERED: CANA100T MT (13:06)
[2025-04-08] MEDS ORDERED: FAMO20TA8 MT (14:42)
[2025-04-08] MEDS ORDERED: SULF1TAB47 MT (14:42)
[2025-04-08] MEDS ORDERED: FERR325T6 MT (14:42)
== END 2025-02-26 17:40 | disposition home or self-care (01) | DRG 92 ==
LOC: ER 16:37 → 6WST 19:57 → EDBEDREQ 20:09 → EDBEDREQTM 20:09 → ENRESERV 21:00
PROVIDERS: ADMIT Student in an Organized Health Care Education/Training Program; ATTEND Student in an Organized Health Care Education/Training Program
DX: G92.8 Other toxic encephalopathy (principal); I69.351 Hemiplegia and hemiparesis following cerebral infarction affecting right dominant side; N39.0 Urinary tract infection, site not specified; Z79.02 Long term (current) use of antithrombotics/antiplatelets; E11.9 Type 2 diabetes mellitus without complications; I10 Essential (primary) hypertension; E03.9 Hypothyroidism, unspecified; M19.90 Unspecified osteoarthritis, unspecified site; E78.00 Pure hypercholesterolemia, unspecified; Z79.82 Long term (current) use of aspirin; Z79.899 Other long term (current) drug therapy; Z87.440 Personal history of urinary (tract) infections
CPT/HCPCS: 36415; 70496; 70498; 70551; 71045; 74177; 80048; 80061; 80076; 80305; 80320; 81003; 82962; 83036; 83605; 84145; 85025; 87340; 92610; 93005; 97161; 97166; 99291; J0696; J1650; J2543; J7030; Q9967; G0480